=== PATIENT | male | born 1980 | race American Indian/Alaskan Native ===

== ENCOUNTER 2018-05-17 19:42 | Emergency (ER) | payer OTHER ==
[2018-05-17 19:59] VITALS: BP 126/81
== END 2018-05-17 21:07 | disposition left against medical advice (07) ==
LOC: ED 19:42
DX: H57.12 Ocular pain, left eye (principal); Z53.21 Procedure and treatment not carried out due to patient leaving prior to being seen by health care provider

== ENCOUNTER → 2022-07-25 | Emergency (ER) | payer SELFPAY ==
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
[2022-07-25 21:59] VITALS: BP 134/92
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
== END | disposition home or self-care (01) ==
LOC: ED 17:41
DX: R07.9 Chest pain, unspecified (principal)
CPT/HCPCS: 70450; 71260; 72125; 74177; 99283